=== PATIENT | female | born 1945 | race Asian ===

== ENCOUNTER 2019-05-10 15:01 | Inpatient (IN) | payer MEDICARE, MEDICAID ==
[~2019-05-10] VITALS: Ht 154.9 cm; Wt 58.1 kg
[2019-05-10 15:33] LABS: BASOPHILS % (AUTO) 0.4 % (0.0-2.0); EOSINOPHILS # (AUTO) 0.1 K/uL (0.0-0.7); EOSINOPHILS % (AUTO) 1.3 % (0.0-7.0); HEMATOCRIT 37.4 % (31.2-41.9); HEMOGLOBIN 12.4 g/dL (10.9-14.3); LYMPHOCYTES # (AUTO) 1.2 K/uL (20.0-40.0); LYMPHOCYTES % (AUTO) 17.5 % (20.5-51.5); MEAN CORPUSCULAR HEMOGLOBIN 32.1 uug (24.7-32.8); MEAN CORPUSCULAR HGB CONC 33 g/dL (32.3-35.6); MEAN CORPUSCULAR VOLUME 96.9 fL (75.5-95.3); MONOCYTES # (AUTO) 0.7 K/uL (2.0-10.0); MONOCYTES % (AUTO) 10.6 % (0.0-11.0); NEUTROPHILS # (AUTO) 4.6 K/uL (1.8-8.9); NEUTROPHILS % (AUTO) 70.2 % (38.5-71.5); PLATELET COUNT (AUTO) 218 K/uL (179-408); RED BLOOD CELL COUNT(AUTO) 3.85 MIL/uL (3.63-4.92); WHITE BLOOD COUNT (AUTO) 6.6 K/uL (3.8-11.8)
[2019-05-10] MEDS ORDERED: ICOS1CAP PO (15:36)
[2019-05-10] MEDS ORDERED: ZOLP10TA6 PO (15:36)
[2019-05-10] MEDS ORDERED: METO-358 PO (15:36)
[2019-05-10] MEDS ORDERED: ESCI20TA PO (15:36)
[2019-05-10] MEDS ORDERED: DOCU100C36 PO (15:36)
[2019-05-10] MEDS ORDERED: ALEN70TA6 PO (15:36)
[2019-05-10] MEDS ORDERED: OLME1TAB16 PO (15:36)
[2019-05-10] MEDS ORDERED: AZEL6DRO5 EACHEYE (15:36)
[2019-05-10] MEDS ORDERED: ASPI81TA31 PO (15:36)
[2019-05-10] MEDS ORDERED: CLON0.1T PO (15:36)
[2019-05-10 15:39] LABS: CARBON DIOXIDE 26 mmol/L (21-32); CHLORIDE 107 mmol/L (98-107); CREATININE 0.8 mg/dL (0.6-1.3); GLUCOSE 121 mg/dL (74-106); POTASSIUM 4.3 mmol/L (3.5-5.1); UREA NITROGEN, BLOOD 8 mg/dL (7-18)
[2019-05-10 15:44] LABS: ETHANOL < 3 MG/DL (0-0)
[2019-05-10 15:45] LABS: ALANINE AMINOTRANSFERASE 21 U/L (14-59); ALKALINE PHOSPHATASE 49 U/L (50-136); ASPARTATE AMINOTRANSFERASE 19 U/L (15-37); BILIRUBIN,DIRECT 0.1 mg/dL (0.0-0.2); BILIRUBIN,TOTAL 0.5 mg/dL (0.2-1.0); TOTAL PROTEIN, SERUM 6.6 g/dL (6.4-8.2)
[2019-05-10 15:46] LABS: ACETAMINOPHEN < 2.0 ug/mL (10-30)
[2019-05-10 16:52] LABS: *BILIRUBIN,URIN NEGATIVE (NEGATIVE); *BLOOD, URINE NEGATIVE (NEGATIVE); *CLARITY,URINE CLEAR (CLEAR); *COLOR,URINE YELLOW (YELLOW); *KETONES,URINE NEGATIVE (NEGATIVE); *UROBILINOGEN,URINE 0.2 E.U./dl (NORMAL); LEUKOCYTE ESTERASE ,URINE NEGATIVE (NEGATIVE); NITRITE, URINE NEGATIVE (NEGATIVE); UGLUCOSE NEGATIVE (NEGATIVE)
[2019-05-10 17:07] LABS: *AMPHETAMINE, URINE NEGATIVE (NEGATIVE); *BARBITURATE, URINE NEGATIVE (NEGATIVE); *CANNABINOID, URINE NEGATIVE (NEGATIVE); *COCCAINE, URINE NEGATIVE (NEGATIVE); *OPIATE, URINE NEGATIVE (NEGATIVE); *PHENCYCLIDINE SCREEN,URINE NEGATIVE (NEGATIVE)
[2019-05-10] MEDS ORDERED: MAGNESIUM HYDROXIDE 30 ML LIQUID UDC PO PRN (19:00)
[2019-05-10] MEDS ORDERED: MAG HYDROX/AL HYDROX/SIMETH 30 ML LIQUID UDC PO PRN (19:00)
[2019-05-10] MEDS ORDERED: BLOOD SUGAR DIAGNOSTIC 1 EACH STRIP VI ONE (19:00)
[2019-05-10] MEDS ORDERED: LORAZEPAM 0.5 MG TABLET PO PRN (19:00)
[2019-05-10] MEDS ORDERED: ACETAMINOPHEN 325 MG TABLET PO PRN (19:00)
[2019-05-10 20:10] VITALS: BP 169/85
[2019-05-10] MEDS ORDERED: ALENDRONATE SODIUM 70 MG TABLET PO SCH (21:00)
[2019-05-10] MEDS: CLONIDINE HCL 0.1 MG TABLET PO PRN (21:31)
[2019-05-10] MEDS: TEMAZEPAM 7.5 MG CAPSULE PO PRN (22:15)
[2019-05-11] MEDS ORDERED: ALENDRONATE SODIUM 70 MG TABLET PO SCH (07:00)
[2019-05-11 08:11] LABS: THYROID STIMULATING HORMONE 3.391 mIU/mL (0.358-3.740)
[2019-05-11] MEDS: OMEGA-3 FATTY ACIDS/FISH OIL CAPSULE PO SCH ×2 (08:31→20:59)
[2019-05-11] MEDS: DOCUSATE SODIUM 100 MG CAPSULE PO SCH ×2 (08:31→16:59)
[2019-05-11] MEDS: ASPIRIN 81 MG TAB.CHEW PO SCH (08:32)
[2019-05-11] MEDS: HYDROCHLOROTHIAZIDE 12.5 MG CAPSULE PO SCH (08:33)
[2019-05-11] MEDS: VALSARTAN 80 MG TABLET PO SCH (08:36)
[2019-05-11] MEDS: METOPROLOL SUCCINATE XL 50 MG TAB.SR.24H PO SCH (08:37)
[2019-05-11] MEDS: ESCITALOPRAM OXALATE 10 MG TABLET PO SCH (08:39)
[2019-05-11] MEDS ORDERED: Medication Not On Formulary EA (Icosapent Ethyl (Vascepa) 2 GM) PO SCH (09:00)
[2019-05-11 09:05] LABS: CREATININE 0.7 mg/dL (0.6-1.3)
[2019-05-11 09:32] VITALS: BP 132/66
[2019-05-11 16:12] VITALS: BP 151/63
[2019-05-11] MEDS: CLONIDINE HCL 0.1 MG TABLET PO PRN (20:59)
[2019-05-11] MEDS: TEMAZEPAM 7.5 MG CAPSULE PO PRN (20:59)
[2019-05-11 21:17] VITALS: BP 165/86
[2019-05-12] MEDS: DOCUSATE SODIUM 100 MG CAPSULE PO SCH ×2 (08:25→17:13)
[2019-05-12] MEDS: OMEGA-3 FATTY ACIDS/FISH OIL CAPSULE PO SCH ×2 (08:25→20:28)
[2019-05-12] MEDS: ESCITALOPRAM OXALATE 10 MG TABLET PO SCH (08:25)
[2019-05-12] MEDS: HYDROCHLOROTHIAZIDE 12.5 MG CAPSULE PO SCH (08:28)
[2019-05-12] MEDS: ASPIRIN 81 MG TAB.CHEW PO SCH (08:28)
[2019-05-12] MEDS: VALSARTAN 80 MG TABLET PO SCH (08:28)
[2019-05-12] MEDS: METOPROLOL SUCCINATE XL 50 MG TAB.SR.24H PO SCH (08:43)
[2019-05-12 09:47] VITALS: BP 150/80
[2019-05-12 16:06] VITALS: BP 142/82
[2019-05-12] MEDS: CEphaleXIN 500 MG CAPSULE PO SCH (17:13)
[2019-05-12 20:24] VITALS: BP 147/83
[2019-05-12] MEDS: TEMAZEPAM 7.5 MG CAPSULE PO PRN (21:44)
[2019-05-13 08:37] VITALS: BP 157/66
[2019-05-13] MEDS: ESCITALOPRAM OXALATE 10 MG TABLET PO SCH (08:39)
[2019-05-13] MEDS: CEphaleXIN 500 MG CAPSULE PO SCH ×2 (08:40→17:06)
[2019-05-13] MEDS: HYDROCHLOROTHIAZIDE 12.5 MG CAPSULE PO SCH (08:40)
[2019-05-13] MEDS: DOCUSATE SODIUM 100 MG CAPSULE PO SCH ×2 (08:40→17:05)
[2019-05-13] MEDS: VALSARTAN 80 MG TABLET PO SCH (08:40)
[2019-05-13] MEDS: ASPIRIN 81 MG TAB.CHEW PO SCH (08:40)
[2019-05-13] MEDS: OMEGA-3 FATTY ACIDS/FISH OIL CAPSULE PO SCH ×2 (08:48→20:26)
[2019-05-13] MEDS: METOPROLOL SUCCINATE XL 50 MG TAB.SR.24H PO SCH (08:53)
[2019-05-13 14:52] VITALS: BP 179/79
[2019-05-13 20:20] VITALS: BP 168/71
[2019-05-13] MEDS: CLONIDINE HCL 0.1 MG TABLET PO PRN (20:32)
[2019-05-13] MEDS: TEMAZEPAM 7.5 MG CAPSULE PO PRN (21:39)
[2019-05-13 22:05] VITALS: BP 140/72
[2019-05-14 07:30] VITALS: BP 188/92
[2019-05-14] MEDS: HYDROCHLOROTHIAZIDE 12.5 MG CAPSULE PO SCH (08:57)
[2019-05-14] MEDS: METOPROLOL SUCCINATE XL 50 MG TAB.SR.24H PO SCH (08:59)
[2019-05-14] MEDS: VALSARTAN 80 MG TABLET PO SCH (08:59)
[2019-05-14] MEDS: DOCUSATE SODIUM 100 MG CAPSULE PO SCH ×2 (08:59→16:45)
[2019-05-14] MEDS: ESCITALOPRAM OXALATE 10 MG TABLET PO SCH (09:00)
[2019-05-14] MEDS: OMEGA-3 FATTY ACIDS/FISH OIL CAPSULE PO SCH ×2 (09:00→20:58)
[2019-05-14] MEDS: CEphaleXIN 500 MG CAPSULE PO SCH ×2 (09:00→16:45)
[2019-05-14] MEDS: ASPIRIN 81 MG TAB.CHEW PO SCH (09:01)
[2019-05-14 15:15] VITALS: BP 123/72
[2019-05-14 20:18] VITALS: BP 142/83
[2019-05-14] MEDS: TEMAZEPAM 7.5 MG CAPSULE PO PRN (22:26)
[2019-05-15 07:30] VITALS: BP 167/81
[2019-05-15] MEDS: ESCITALOPRAM OXALATE 10 MG TABLET PO SCH (09:31)
[2019-05-15] MEDS: ASPIRIN 81 MG TAB.CHEW PO SCH (09:31)
[2019-05-15] MEDS: CEphaleXIN 500 MG CAPSULE PO SCH ×2 (09:31→17:48)
[2019-05-15] MEDS: OMEGA-3 FATTY ACIDS/FISH OIL CAPSULE PO SCH ×2 (09:31→20:33)
[2019-05-15] MEDS: DOCUSATE SODIUM 100 MG CAPSULE PO SCH ×2 (09:31→17:49)
[2019-05-15] MEDS: VALSARTAN 80 MG TABLET PO SCH (09:32)
[2019-05-15] MEDS: HYDROCHLOROTHIAZIDE 12.5 MG CAPSULE PO SCH (09:33)
[2019-05-15] MEDS: METOPROLOL SUCCINATE XL 50 MG TAB.SR.24H PO SCH (10:00)
[2019-05-15 15:35] VITALS: BP 139/72
[2019-05-15 20:10] VITALS: BP 166/78
[2019-05-15 20:30] VITALS: BP 144/87
[2019-05-15] MEDS: TEMAZEPAM 7.5 MG CAPSULE PO PRN (21:58)
[2019-05-16 07:30] VITALS: BP 116/83
[2019-05-16] MEDS: CLONIDINE HCL 0.1 MG TABLET PO PRN (07:33)
[2019-05-16] MEDS: CEphaleXIN 500 MG CAPSULE PO SCH ×2 (10:13→17:30)
[2019-05-16] MEDS: OMEGA-3 FATTY ACIDS/FISH OIL CAPSULE PO SCH ×2 (10:13→20:17)
[2019-05-16] MEDS: ASPIRIN 81 MG TAB.CHEW PO SCH (10:14)
[2019-05-16] MEDS: DOCUSATE SODIUM 100 MG CAPSULE PO SCH ×2 (10:14→17:30)
[2019-05-16] MEDS: ESCITALOPRAM OXALATE 10 MG TABLET PO SCH (10:14)
[2019-05-16] MEDS: METOPROLOL SUCCINATE XL 50 MG TAB.SR.24H PO SCH (12:09)
[2019-05-16] MEDS: HYDROCHLOROTHIAZIDE 12.5 MG CAPSULE PO SCH (12:10)
[2019-05-16] MEDS: VALSARTAN 80 MG TABLET PO SCH (12:10)
[2019-05-16 15:16] VITALS: BP 131/69
[2019-05-16 20:00] VITALS: BP 127/73
[2019-05-16] MEDS: TEMAZEPAM 7.5 MG CAPSULE PO PRN (22:45)
[2019-05-17 07:30] VITALS: BP 163/70
[2019-05-17] MEDS: DOCUSATE SODIUM 100 MG CAPSULE PO SCH ×2 (09:00→17:17)
[2019-05-17] MEDS: VALSARTAN 80 MG TABLET PO SCH (09:00)
[2019-05-17] MEDS: CEphaleXIN 500 MG CAPSULE PO SCH ×2 (09:00→17:17)
[2019-05-17] MEDS: ASPIRIN 81 MG TAB.CHEW PO SCH (09:00)
[2019-05-17] MEDS: ESCITALOPRAM OXALATE 10 MG TABLET PO SCH (09:01)
[2019-05-17] MEDS: OMEGA-3 FATTY ACIDS/FISH OIL CAPSULE PO SCH ×2 (09:02→20:54)
[2019-05-17] MEDS: HYDROCHLOROTHIAZIDE 12.5 MG CAPSULE PO SCH (09:02)
[2019-05-17] MEDS: METOPROLOL SUCCINATE XL 50 MG TAB.SR.24H PO SCH (09:03)
[2019-05-17 15:44] VITALS: BP 151/60
[2019-05-17 19:59] VITALS: BP 145/87
[2019-05-17] MEDS: TEMAZEPAM 7.5 MG CAPSULE PO PRN (23:30)
[2019-05-18] MEDS ORDERED: ALENDRONATE SODIUM 70 MG TABLET PO SCH (06:00)
[2019-05-18] MEDS: CEphaleXIN 500 MG CAPSULE PO SCH ×2 (08:47→17:52)
[2019-05-18] MEDS: DOCUSATE SODIUM 100 MG CAPSULE PO SCH ×2 (08:47→17:52)
[2019-05-18] MEDS: OMEGA-3 FATTY ACIDS/FISH OIL CAPSULE PO SCH ×2 (08:47→20:32)
[2019-05-18] MEDS: ASPIRIN 81 MG TAB.CHEW PO SCH (08:47)
[2019-05-18] MEDS: HYDROCHLOROTHIAZIDE 12.5 MG CAPSULE PO SCH (08:48)
[2019-05-18] MEDS: VALSARTAN 80 MG TABLET PO SCH (08:48)
[2019-05-18] MEDS: ESCITALOPRAM OXALATE 10 MG TABLET PO SCH (08:48)
[2019-05-18] MEDS: METOPROLOL SUCCINATE XL 50 MG TAB.SR.24H PO SCH (09:00)
[2019-05-18 10:38] VITALS: BP 119/77
[2019-05-18 15:25] VITALS: BP 166/79
[2019-05-18] MEDS: CLONIDINE HCL 0.1 MG TABLET PO PRN (20:34)
[2019-05-18 20:36] VITALS: BP 157/90
[2019-05-18] MEDS: TEMAZEPAM 7.5 MG CAPSULE PO PRN (22:51)
[2019-05-19 08:23] VITALS: BP 132/70
[2019-05-19] MEDS: ASPIRIN 81 MG TAB.CHEW PO SCH (08:24)
[2019-05-19] MEDS: HYDROCHLOROTHIAZIDE 12.5 MG CAPSULE PO SCH (08:24)
[2019-05-19] MEDS: DOCUSATE SODIUM 100 MG CAPSULE PO SCH (08:24)
[2019-05-19] MEDS: CEphaleXIN 500 MG CAPSULE PO SCH (08:24)
[2019-05-19] MEDS: ESCITALOPRAM OXALATE 10 MG TABLET PO SCH (08:24)
[2019-05-19] MEDS: VALSARTAN 80 MG TABLET PO SCH (08:25)
[2019-05-19] MEDS: OMEGA-3 FATTY ACIDS/FISH OIL CAPSULE PO SCH (08:34)
[2019-05-19 09:38] VITALS: BP 132/70
[2019-05-19] MEDS: METOPROLOL SUCCINATE XL 50 MG TAB.SR.24H PO SCH (09:38)
== END 2019-05-19 12:03 | DRG 885 ==
LOC: ER 15:01 → GPS 17:25
PROVIDERS: ADMIT Psychiatry & Neurology Psychiatry; ATTEND Nurse Practitioner Acute Care
DX: F33.2 Major depressive disorder, recurrent severe without psychotic features (principal); B95.1 Streptococcus, group B, as the cause of diseases classified elsewhere; N39.0 Urinary tract infection, site not specified; T46.5X2D Poisoning by other antihypertensive drugs, intentional self-harm, subsequent encounter; R00.1 Bradycardia, unspecified; R13.12 Dysphagia, oropharyngeal phase; Z85.038 Personal history of other malignant neoplasm of large intestine; Z79.82 Long term (current) use of aspirin; Z79.899 Other long term (current) drug therapy; I10 Essential (primary) hypertension; F41.9 Anxiety disorder, unspecified; E78.1 Pure hyperglyceridemia; R13.10 Dysphagia, unspecified
CPT/HCPCS: 36415; 80307; 84443; 85025; 87086; A4663; G0480; G0480-TC; J8499